=== PATIENT | female | born 1970 | race Asian ===

== ENCOUNTER 2016-09-10 12:17 | Emergency (ER) | payer MEDICAID ==
[2016-09-10 12:49] VITALS: BP 144/86; PULSE 88; RESP 16; TEMP 98.8; O2SAT 97
--- NOTE | 2016-09-10 13:57 | UCPHY ---
H & P Time Seen by Provider: 09/10/16 13:40 Patient Type: New HPI/ROS: CHIEF COMPLAINT: Left eye itching History by patient HISTORY OF PRESENT ILLNESS: 46-year-old woman presents complaining of itching and watering in her left eye which has been going on for 3-4 weeks. She has tried emlb-rov-pyruiyr antihistamine drops with no relief. Also for several weeks she has noticed some redness in the skin lateral to her eye but no eyelid swelling or redness. She occasionally has some slightly yellow discharge in her eyes when she wakes in the morning. She has had no difficulty with her vision and has no foreign body sensation. She says the light sometimes bothers her eyes. 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 She denies any chemical exposures. She has no prior history of allergies but says that she had a exposure many years ago where she had a similar reaction. REVIEW OF SYSTEMS: As in HPI, and all other systems reviewed and are negative Smoking Status: Never smoked Physical Exam: Visual Acuity: noted from Nurse's notes. Pupils: equal round and reactive to light EOMI Lids: no edema or swelling Skin: no proptosis, no periorbital erythema or swelling, no vesicles erythematous plaque on the skin over lateral canthus Conjunctivae: Mildly injected, positive cobblestoning, no discharge Cornea: exam with fluorescein shows no evidence of keratitis or other lesion Constitutional: Initial Vital Signs Temperature (C) 37.1 C 09/10/16 12:44 Heart Rate 88 09/10/16 12:44 Respiratory Rate 16 09/10/16 12:44 Blood Pressure 144/86 H 09/10/16 12:44 O2 Sat (%) 97 09/10/16 12:44 O2 Delivery Mode Room Air Allergies/Adverse Reactions: No Known Allergies Allergy (Unverified 09/10/16 12:49) Home Medications: Medication Instructions Recorded NK [No Known Home Meds] 09/10/16 MDM/Departure - [facility] ED Course/Re-evaluation: PATIENT PRESENTS WITH 1 MONTH OF ITCHY EYE AND SKIN CHANGES suggestive of contact dermatitis or lichen sclerosis. There is no evidence of visual impairment or infection. I will give the patient a trial of topical antihistamines for her eye and have her follow up with Ophthalmology. - Depart Disposition: Home, Routine, Self-Care Clinical Impression: Allergic conjunctivitis of left eye Condition: Good Instructions: Conjunctivitis (ED) Additional Instructions: You were seen by Dr. Evelyn Juarez today. Return for any worsening or new concerns. Please follow up with the eye doctor. Try prescription drops to see if they improve your symptoms. Referrals: NONE *PRIMARY CARE P,. [Primary Care Provider] - As per Instructions Robin Mccrary MD [Medical Doctor] - As per Instructions - PQRS PQRS Measurement: NA
== END 2016-09-10 14:15 | disposition home or self-care (01) ==
LOC: CED 12:17
DX: H10.12 Acute atopic conjunctivitis, left eye (principal)
CPT/HCPCS: 99202-PO; G0463-PO